=== PATIENT | female | born 1985 | race Caucasian/White ===

== ENCOUNTER 2017-12-16 12:48 | Day surgery (SDC) | payer OTHER ==
[2017-12-16] MEDS ORDERED: LIDOCAINE 2% (SDV) 5 ML INJ (15:33)
[2017-12-16] MEDS ORDERED: PROPOFOL 40 ML (15:33)
[2017-12-16] MEDS ORDERED: PROPOFOL 20 ML (16:13)
== END 2017-12-16 16:22 | disposition home or self-care (01) ==
LOC: GIL 12:48
DX: K64.0 First degree hemorrhoids (principal)
CPT/HCPCS: 45378; 84703